=== PATIENT | female | born 2000 | race Caucasian/White ===

== ENCOUNTER 2024-02-16 02:15 | Inpatient (IN) ==
[2024-02-16] MEDS ORDERED: Prochlorperazine 5 mg/ml 2 ml VIAL (10 mg) IM PRN (04:05)
[2024-02-16] MEDS ORDERED: Lidocaine 1% VIAL 10 MG/ML 30 ML VIAL INJ PRN (04:05)
[2024-02-16 06:11] LABS: Urine Benzodiazepine Screen None Detected (None Detect); Urine Cannabinoids Screen None Detected (None Detect); Urine Opiates Screen None Detected (None Detect)
[2024-02-16 09:14] LABS: Hematocrit 34.8 % (35-45); Hemoglobin 11.8 g/dL (11.5-14.3); Mean Corpuscular Hemoglobin 30.7 pg (27-33); Mean Corpuscular Hgb Conc 33.8 g/dL (31-36); Mean Corpuscular Volume 90.8 fL (80-97); Red Blood Count 3.83 10^6/uL (3.63-4.92); Red Cell Distribution Width 14.3 % (12-17)
[2024-02-16 09:55] LABS: ABS Monocytes 0.7 10^3/uL (0.0-0.9); ABS Neutrophils 7.2 10^3/uL (1.5-7.6); Eosinophil % 0.4 %; Large Platelets Present; Lymphocyte % 19.6 %; Mean Platelet Volume 10.5 fL (7.5-11.2); Platelet Count 167 10^3/uL (150-450)
[2024-02-16] MEDS: Lactated Ringers 1000 ml BAG 1,000 ML IV ONE (10:25)
[2024-02-16] MEDS: fentaNYL 100 mcg/2 ml 50 MCG/ML VIAL ONE (10:46)
[2024-02-16] MEDS: Lactated Ringers 1000 ml BAG 1,000 ML IV SCH (10:50)
[2024-02-16] MEDS ORDERED: Lidocaine 2% w/ EPI 1:200,000 MPF 20 ML SDV VIAL ONE (10:53)
[2024-02-16] MEDS: Oxytocin in LR 20,000 MILLI.UNIT/1,000 ML BAG IV SCH (13:03)
[2024-02-16] MEDS ORDERED: Glycerin ADULT 2.4 gm SUPP PR PRN (13:14)
[2024-02-16] MEDS: Dibucaine 1% OINT 28.35 GM TUBE PR PRN (14:31)
[2024-02-16] MEDS: Witch Hazel PAD JAR TOPICAL PRN (14:31)
[2024-02-17 06:41] LABS: ABS Lymphocytes 1.7 10^3/uL (1.0-4.8); Eosinophil % 0.3 %; Hematocrit 27.4 % (35-45); Hemoglobin 9.5 g/dL (11.5-14.3); Lymphocyte % 14.5 %; Mean Corpuscular Hemoglobin 31.2 pg (27-33); Mean Corpuscular Hgb Conc 34.6 g/dL (31-36); Mean Corpuscular Volume 90.2 fL (80-97); Mean Platelet Volume 10.3 fL (7.5-11.2); Platelet Count 158 10^3/uL (150-450); Red Blood Count 3.04 10^6/uL (3.63-4.92); Red Cell Distribution Width 13.7 % (12-17); White Blood Count 11.8 10^3/uL (3.8-11.8)
[2024-02-17] MEDS: fentaNYL 100 mcg/2 ml 50 MCG/ML VIAL IV ONE (12:33)
[2024-02-17] MEDS: Lidocaine/Epinephrin 1.5%/200 5 ML AMP INJ ONE (12:33)
[2024-02-17] MEDS: Buffered Lidocaine 1% SYRIN 1 ml INTRADERM ONE (12:33)
[2024-02-17] MEDS: Oxytocin in LR 20,000 MILLI.UNIT/1,000 ML BAG IV ONE (12:34)
[2024-02-17] MEDS: OBEPIDURAL (200 ML) 0 ML EPIDURAL ONE (12:37)
[2024-02-18 07:53] VITALS: BP 106/69
== END 2024-02-18 14:03 | disposition home or self-care (01) | DRG 560 ==
LOC: MCHOBOUT 02:15 → MCHOB 03:25
PROVIDERS: ADMIT Advanced Practice Midwife; ATTEND Midwife